=== PATIENT | female | born 1950 ===

== ENCOUNTER 2016-07-16 11:37 | Emergency (ER) | payer SELFPAY ==
[2016-07-16 12:41] VITALS: BP 141/88; PULSE 72; RESP 18; TEMP 99; O2SAT 97
--- NOTE | 2016-07-16 12:43 | ED PDOC ---
HPI: Back Time Seen by Provider: 07/16/16 12:30 Chief Complaint (Nursing): Back Pain Chief Complaint (Provider): Back Pain History Per: Patient History/Exam Limitations: no limitations Onset/Duration Of Symptoms: Days (x2 days ago) Current Symptoms Are (Timing): Still Present Severity: Moderate Previous Symptoms: Back Pain Additional Complaint(s): Chuyita Alford is a 65 year old female, with a past medical history of HTN, who presents to the emergency department with complaints of back pain, that the patient has been experiencing for 2 days. Patient reportedly states the pain radiating throughout her back and into her right leg. She took Tylenol prior to arrival; however, it did not alleviate the pain. Denies acute injury or trauma. Of note, the patient states she has a past history inclusive of spinal problems in the past and that she has felt this pain before. PMD: [facility] Past Medical History Reviewed: Historical Data, Nursing Documentation, Vital Signs Vital Signs: Last Vital Signs Temp 99 F 07/16/16 12:22 Pulse 72 07/16/16 12:22 Resp 18 07/16/16 12:22 BP 141/88 07/16/16 12:22 Pulse Ox 97 07/16/16 12:22 - Medical History PMH: HTN - Surgical History Surgical History: Hernia Repair Other surgeries: hysterectomy, tubal ligation - Family History Family History: States: Unknown Family Hx - Home Medications Home Medications: Ambulatory Orders Medication Instructions Recorded Oxycodone HCl/Acetaminophen 1 tab PO Q6H PRN #5 tab 11/28/15 [Percocet 325 mg-5 mg] traMADol [Ultram] 50 mg PO Q6 PRN #10 tab 07/16/16 - Allergies Allergies/Adverse Reactions: Allergies Allergy/AdvReac Type Severity Reaction Status Date / Time aspirin Allergy VOMITING Verified 07/16/16 12:21 Review of Systems Genitourinary Female: Negative for: Incontinence Musculoskeletal: Positive for: Back Pain Skin: Negative for: Rash Neurological: Negative for: Weakness, Numbness Physical Exam - Reviewed Nursing Documentation Reviewed: Yes Vital Signs Reviewed: Yes - Physical Exam Appears: Positive for: Non-toxic, No Acute Distress Head Exam: Positive for: ATRAUMATIC, NORMOCEPHALIC Skin: Positive for: Normal Color, Warm, Dry Eye Exam: Positive for: Normal appearance Neck: Positive for: Normal, Painless ROM Respiratory: Negative for: Respiratory Distress Back: Positive for: Normal Inspection (no rash), Other (right paralumbar tenderenss, right gluteal tenderness) Extremity: Positive for: Normal ROM, Other (strength and sesnation equal b/l legs). Negative for: Swelling Neurologic/Psych: Positive for: Alert, Oriented. Negative for: Motor/Sensory Deficits - ECG O2 Sat by Pulse Oximetry: 97 Pulse Ox Interpretation: Normal - Progress ED Course And Treament: TRAMADOL 50 MG X 1 DOSE IN ED. Medical Decision Making Medical Decision Makin:30 Initial Impression: Back pain Initial Plan: * Ultram 50mg PO * Reevaluation Scribe Attestation: Documented by Kvng Call, training under Senait Anderson, acting as a scribe for Martin GUTIERREZ. Provider Scribe Attestation: All medical record entries made by the Scribe were at my direction and personally dictated by me. I have reviewed the chart and agree that the record accurately reflects my personal performance of the history, physical exam, medical decision making, and the department course for this patient. I have also personally directed, reviewed, and agree with the discharge instructions and disposition. Disposition - Clinical Impression Clinical Impression: Back pain - Patient ED Disposition Is Patient to be Admitted: No - Disposition Disposition: Routine/Home Disposition Time: 13:23 Condition: FAIR Prescriptions: traMADol [Ultram] 50 mg PO Q6 PRN #10 tab PRN Reason: Pain, Moderate (4-7) Instructions: Back Pain (GEN) Print Language: WOLOF
== END 2016-07-16 13:41 | disposition home or self-care (01) ==
LOC: H.ER 11:37
DX: M54.9 Dorsalgia, unspecified (principal)

== ENCOUNTER 2017-01-04 21:48 | Emergency (ER) | payer OTHER, SELFPAY ==
[2017-01-04 21:54] VITALS: BP 165/78; PULSE 61; RESP 16; TEMP 98.1; O2SAT 99
--- NOTE | 2017-01-04 22:50 | ED PDOC ---
HPI: General Adult Time Seen by Provider: 01/04/17 22:48 Chief Complaint (Nursing): Back Pain Chief Complaint (Provider): back pain History Per: Patient (66 y/o female with right sided back pain noted with awakening today. Denies any fall injury. Denies any vomiting/fevers/chills/ dysuria. Took motrin 400 mg 1 hour prior without relief.) Past Medical History Reviewed: Historical Data, Nursing Documentation, Vital Signs Vital Signs: Last Vital Signs Temp 98.1 F 01/04/17 21:51 Pulse 61 01/04/17 21:51 Resp 16 01/04/17 21:51 BP 165/78 H 01/04/17 21:51 Pulse Ox 99 01/04/17 22:50 - Medical History PMH: HTN - Surgical History Surgical History: Hernia Repair - Family History Family History: States: Unknown Family Hx - Home Medications Home Medications: Ambulatory Orders Medication Instructions Recorded Oxycodone HCl/Acetaminophen 1 tab PO Q6H PRN #5 tab 11/28/15 [Percocet 325 mg-5 mg] traMADol [Ultram] 50 mg PO Q6 PRN #10 tab 07/16/16 Naproxen [Naprosyn Tab] 375 mg PO Q8 PRN #15 tab 01/04/17 Tramadol HCl [Ultram] 50 mg PO Q8 PRN #8 tablet 01/04/17 - Allergies Allergies/Adverse Reactions: Allergies Allergy/AdvReac Type Severity Reaction Status Date / Time aspirin Allergy VOMITING Verified 07/16/16 12:21 Review of Systems ROS Statement: Except As Marked, All Systems Reviewed And Found Negative Musculoskeletal: Positive for: Back Pain Physical Exam - Reviewed Nursing Documentation Reviewed: Yes Vital Signs Reviewed: Yes - Physical Exam Appears: Positive for: Well, Non-toxic, No Acute Distress Head Exam: Positive for: ATRAUMATIC, NORMAL INSPECTION, NORMOCEPHALIC Skin: Positive for: Normal Color, Warm, DRY Eye Exam: Positive for: EOMI, Normal appearance, PERRL ENT: Positive for: Normal ENT Inspection Neck: Positive for: Normal, Painless ROM Cardiovascular/Chest: Positive for: Regular Rate, Rhythm. Negative for: Chest Non Tender (right lateral lower ribcage tender to touch.) Respiratory: Positive for: CNT, Normal Breath Sounds Gastrointestinal/Abdominal: Positive for: Normal Exam, Bowel Sounds, Soft Back: Positive for: Normal Inspection Extremity: Positive for: Normal ROM Neurologic/Psych: Positive for: Alert, Oriented - ECG O2 Sat by Pulse Oximetry: 99 - Progress ED Course And Treament: ultram 50 mg x 1 dose cxr: no acute injury Disposition - Clinical Impression Clinical Impression: Muscle strain of chest wall - Patient ED Disposition Is Patient to be Admitted: No - Disposition Disposition: Routine/Home Disposition Time: 23:16 Condition: FAIR Prescriptions: Naproxen [Naprosyn Tab] 375 mg PO Q8 PRN #15 tab PRN Reason: Pain, Moderate (4-7) Tramadol HCl [Ultram] 50 mg PO Q8 PRN #8 tablet PRN Reason: Pain, Severe (8-10) Instructions: Muscle Strain (ED) Forms: [facility] (Monegasque) Print Language: PORTUGUESE
--- NOTE | 2017-01-05 10:37 | RAD ---
PROCEDURE: Radiographs of the Chest and Right Ribs. HISTORY: rib injury COMPARISON: None available. TECHNIQUE: Frontal radiograph of the chest and multiple oblique radiographs of the right ribs were obtained. FINDINGS: RIGHT RIBS: No fracture or focal lesion visualized. LUNGS: Clear. PLEURA: No pneumothorax or pleural fluid. CARDIOVASCULAR: Normal sized heart. No pulmonary vascular congestion. OTHER FINDINGS: None. IMPRESSION: Unremarkable radiographs of the chest and right ribs. No right rib fracture.
== END 2017-01-04 23:33 | disposition home or self-care (01) ==
LOC: H.ER 21:48
DX: M54.9 Dorsalgia, unspecified (principal); I10 Essential (primary) hypertension

== ENCOUNTER 2018-04-29 09:07 | Emergency (ER) | payer OTHER ==
[2018-04-29 09:40] VITALS: PULSE 69; RESP 18; TEMP 98.4
[2018-04-29 10:11] VITALS: BP 142/87
[2018-04-29 10:28] VITALS: O2SAT 97
--- NOTE | 2018-04-29 12:02 | ED PDOC ---
HPI: Influenza Time Seen by Provider: 04/29/18 09:29 Chief Complaint: Cough, Cold, Congestion Chief Complaint (Provider): Cough, Cold, Congestion History Per: Patient Exam Limitations: no limitations Onset/Duration Of Symptoms: Days (x1) Additional complaint(s):: 67 year old female with pmHx of HTN and HCL, presents to ED with a complaint of pleuritic pain when she coughs associated with runny nose and nasal congestion for 1 day. Patient denies shortness of breath, chest pain, or taking pain medications for relief. PCP: [facility] Past Medical History Reviewed: Historical Data, Nursing Documentation, Vital Signs Vital Signs: Last Vital Signs Temp 98.4 F 04/29/18 09:38 Pulse 69 04/29/18 09:38 Resp 18 04/29/18 09:38 BP 142/87 04/29/18 10:27 Pulse Ox 97 04/29/18 10:27 - Medical History PMH: HTN, Hypercholesterolemia - Surgical History Surgical History: Hernia Repair - Family History Family History: States: Unknown Family Hx - Home Medications Home Medications: Ambulatory Orders Medication Instructions Recorded Oxycodone HCl/Acetaminophen 1 tab PO Q6H PRN #5 tab 11/28/15 [Percocet 325 mg-5 mg] RX: traMADol [Ultram] 50 mg PO Q6 PRN #10 tab 07/16/16 RX: Naproxen [Naprosyn Tab] 375 mg PO Q8 PRN #15 tab 01/04/17 Tramadol HCl [Ultram] 50 mg PO Q8 PRN #8 tablet 01/04/17 Benzonatate [Tessalon Perles] 100 mg PO BID PRN 5 Days sgl 04/29/18 - Allergies Allergies/Adverse Reactions: Allergies Allergy/AdvReac Type Severity Reaction Status Date / Time aspirin Allergy VOMITING Verified 04/29/18 09:55 Review of Systems ROS Statement: Except As Marked, All Systems Reviewed And Found Negative ENT: Positive for: Nose Discharge, Nose Congestion Cardiovascular: Negative for: Chest Pain Respiratory: Positive for: Cough, Pleuritic Pain. Negative for: Shortness of Breath Physical Exam - Reviewed Nursing Documentation Reviewed: Yes Vital Signs Reviewed: Yes - Physical Exam Appears: Positive for: No Acute Distress, Uncomfortable Head Exam: Positive for: ATRAUMATIC, NORMAL INSPECTION, NORMOCEPHALIC Skin: Positive for: Normal Color Eye Exam: Positive for: Normal appearance, EOMI, PERRL ENT: Positive for: TM Is/Are (clear bilaterally), Nasal Congestion. Negative for: Pharyngeal Erythema, Tonsillar Swelling Neck: Positive for: Normal, Supple Cardiovascular/Chest: Positive for: Regular Rate, Rhythm, Chest Non Tender Respiratory: Positive for: Normal Breath Sounds. Negative for: Wheezing, Respiratory Distress Gastrointestinal/Abdominal: Positive for: Normal Exam, Soft. Negative for: Tenderness Back: Positive for: Normal Inspection. Negative for: L CVA Tenderness, R CVA Tenderness Extremity: Positive for: Normal ROM (upper/lower) Neurologic/Psych: Positive for: Alert, Oriented (x3). Negative for: Motor/Sensory Deficits Medical Decision Making Medical Decision Making: Time: 942 Initial Plan: * Motrin 600gmg PO * Tessalon Perles 100mg PO * Tylenol 975mg PO Time: 7 --Upon provider reevaluation, patient is medically stable and requires no further treatment in the ED at this time. Patient will be discharged home with Rx for Tessalon Perles. Counseling was provided and all questions were answered regarding diagnosis. There is agreement to discharge plan. Return if symptoms persist or worsen. Clinical Impression: URI Scribe Attestation: Documented by Haley Wing, acting as a scribe for Ashwin Finley MD. Provider Scribe Attestation: All medical record entries made by the Scribe were at my direction and per sonally dictated by me. I have reviewed the chart and agree that the record accurately reflects my personal performance of the history, physical exam, medical decision making, and the department course for this patient. I have also personally directed, reviewed, and agree with the discharge instructions and disposition. - ECG O2 Sat by Pulse Oximetry: 97 (RA) Pulse Ox Interpretation: Normal Disposition - Clinical Impression Clinical Impression: URI (upper respiratory infection) - Patient ED Disposition Is Patient to be Admitted: No Counseled Patient/Family Regarding: Diagnosis, Need For Followup, Rx Given - Disposition Referrals: [facility] [Outside] - 04/30/18 Disposition: Routine/Home Disposition Time: 10:27 Condition: STABLE Additional Instructions: Return if not better in 3 days. Prescriptions: Benzonatate [Tessalon Perles] 100 mg PO BID PRN 5 Days sgl PRN Reason: Cough Instructions: Viral Upper Respiratory Infection, Adult (DC) Forms: [employer] (Kiswahili) Print Language: MALAY
== END 2018-04-29 10:01 | disposition home or self-care (01) ==
LOC: H.ER 09:07
DX: J06.9 Acute upper respiratory infection, unspecified (principal); E78.00 Pure hypercholesterolemia, unspecified; I10 Essential (primary) hypertension